=== PATIENT | female | born 1980 | race African-American/Black ===

== ENCOUNTER 2017-10-25 13:49 | Emergency (ER) | payer MEDICAID ==
[~2017-10-25] VITALS: Ht 162.6 cm; Wt 85.0 kg
[2017-10-25] MEDS ORDERED: KETOROLAC 60MG/2ML VIAL IM ONE (16:15)
[2017-10-25 17:31] LABS: CLARITY URINE CLOUDY (CLEAR); COLOR URINE YELLOW (YELLOW); KETONES URINE TRACE (NEGATIVE); LEUKOCYTE ESTERASE URINE NEGATIVE (NEGATIVE); NITRITE URINE NEGATIVE (NEGATIVE); OCCULT BLOOD URINE 3+ (NEGATIVE); PROTEIN URINE NEGATIVE (NEGATIVE); SPECIFIC GRAVITY URINE 1.033 (1.005-1.030)
[2017-10-25 18:20] VITALS: BP 133/84
== END 2017-10-25 21:08 | disposition home or self-care (01) ==
LOC: ER 14:05
DX: N83.201 Unspecified ovarian cyst, right side (principal); R42 Dizziness and giddiness; R20.0 Anesthesia of skin
CPT/HCPCS: 74176; 81001; 81025; 96372; 99285; J1885